=== PATIENT | male | born 1955 | race Caucasian/White ===

== ENCOUNTER 2023-09-12 10:00 | Emergency (ER) | payer OTHER, SELFPAY ==
[2023-09-12 10:09] VITALS: BP 145/74
[2023-09-12 10:49] VITALS: BP 130/71
[2023-09-12 11:25] LABS: % Basophils 0.3 % (0-2); % Eosinophils 0.2 % (0-6); % Immature Granulocytes 0.3 % (0-0.5); % Lymphocytes 6.4 % (20.5-51.1); % Monocytes 6.1 % (1.7-9.3); % Neutrophils 86.7 % (42.2-75.2); Absolute Lymphocytes 0.6 10^3/uL (1.2-3.4); Absolute Monocytes 0.6 10^3/uL (0.1-0.6); Absolute Neutrophils 8.2 10^3/uL (1.4-6.5); Hematocrit 43.1 % (39.0-52.0); Hemoglobin 15.4 g/dL (13.0-18.0); Mean Corp Hgb Conc. 35.7 g/dL (33.0-37.0); Mean Corpuscular Hgb 31.4 pg (27.0-31.0); Mean Platelet Volume 9.6 fL (7.4-10.4); Nucleated Red Blood Cells % 0 % (-); Platelet Count 170 10^3/uL (130-400); Red Cell Dist. Width 12.2 % (11.5-14.5); White Blood Cell Count 9.4 10^3/uL (4.8-10.8)
[2023-09-12 11:51] LABS: ALT (SGPT) 23 U/L (0-50); AST (SGOT) 31 U/L (17-59); Albumin 4.3 g/dl (3.5-5.0); Alkaline Phosphatase 59 U/L (38-126); Blood Urea Nitrogen 22 mg/dl (9-20); Calcium 9.4 mg/dl (8.4-10.2); Carbon Dioxide 26 mmol/L (22-30); Chloride 103 mmol/L (98-107); Glucose 148 mg/dl (70-99); Potassium 3.7 mmol/L (3.5-5.1); Sodium 139 mmol/L (135-145); eGFR > 60.00
[2023-09-12 11:53] LABS: Lipase 42 U/L (23-300)
[2023-09-12 13:11] VITALS: BP 114/74
--- NOTE | 2023-09-12 13:27 | ED.GENMED ---
History of Present Illness
General
Chief Complaint: Abdominal Pain
Source: patient
Exam Limitations: none
Time Seen by Provider: 09/12/23 10:38
Travel History
Have you had any contact with someone who has COVID-19?: No
Do you have any symptoms of coronavirus? Fever > 100 degrees, chills, cough, shortness of breath, sore throat, loss of taste or smell, muscle aches, or headache?: No
History of Present Illness
History of Present Illness:
68-year-old male presents with lower abdominal pain. Patient states that he noticed it yesterday but much worse today. Pain on my evaluation is slightly improved but still persist. No nausea or vomiting. No hematuria. No dysuria. No
hematochezia. No melena.
Past History
Past History
ED Past Medical History: Psychiatric (Bipolar, depression); Negative CAD, HTN or Hypercholesterolemia
ED Past Surgical History: None
Social History
Tobacco: Non-smoker
Alcohol: Occasional
Drug: None
Personal:
Living: alone
Employment: Not employed
Family History
Family History: Other
Phy Exam
Physical Exam
Physical Exam:
CONSTITUTIONAL Patient alert and oriented to person, place and time. Well-appearing. Vital signs reviewed.
HEAD atraumatic, normocephalic.
EYES eyelids normal to inspection, Pupils equally round and reactive to light, Extraocular muscles intact, Conjunctiva normal, Sclera normal.
NECK normal range of motion, Trachea midline, no jugular venous distention.
RESPIRATORY CHEST No respiratory distress noted, Chest expansion equal, Bilateral breath sounds clear.
CARDIOVASCULAR regular rate and rhythm, Heart sounds normal.
ABDOMEN mild generalized lower abdominal tenderness, Bowel sounds normal. No distention.
BACK normal inspection, no obvious deformities
UPPER EXTREMITY range of motion normal, Motor strength normal, no cyanosis, no edema.
LOWER EXTREMITY range of motion normal, Motor strength normal, no cyanosis, no edema.
NEURO Speech normal, No focal motor deficits, Connell coma scale 15, Memory normal, Cranial Nerves intact to screening exam.
SKIN skin warm, dry, and normal in color.
PSYCHIATRIC patient oriented to person place and time, Normal affect.
Course
Orders/Labs/Results
Orders:
Orders
09/12/23 11:04
CT Abd/Pel (IV only)-DH only Urgent
Comment:
Reason For Exam: lower abd pain
09/12/23 11:15
Complete Blood Count/With Diff Urgent
Comprehensive Metabolic Panel Urgent
Lipase Urgent
09/12/23 13:29
Urinalysis Reflex To Culture Urgent
Date Specimen was Collected: 09/12/23
Time Specimen was Collected: 13:28
Urine Microscopic Reflex Cult Urgent
Abnormal Lab Results
09/12/23 09/12/23
11:15 13:29
MCH 31.4 H pg
(27.0-31.0)
Absolute Neuts (auto) 8.2 H 10^3/uL
(1.4-6.5)
Absolute Lymphs (auto) 0.6 L 10^3/uL
(1.2-3.4)
Neutrophils % 86.7 H %
(42.2-75.2)
Lymphocytes % 6.4 L %
(20.5-51.1)
BUN 22 H mg/dl
(9-20)
Glucose 148 H mg/dl
(70-99)
Ur Occult Blood Reflex 4+ A
(Negative)
Urine Urobilinogen 2+ A
(Neg - 1+)
Leukocyte Esterase Rfl Trace A
(Negative)
Urine RBC 16-20 A /HPF
(0-2)
Urine Bacteria (Reflex) Few A
(Negative)
Urine Albumin (Reflex) 1+ A
(Neg - Trace)
09/12/23 11:15
09/12/23 11:15
Vital Signs
Initial and Last Documented VS:
Initial Vital Signs
Temp Pulse Resp BP Pulse Ox
97.6 F 60 16 145/74 98
09/12/23 10:09 09/12/23 10:09 09/12/23 10:09 09/12/23 10:09 09/12/23 10:09
Last Documented Vital Signs
Temp Pulse Resp BP Pulse Ox
97.6 F 66 16 114/74 97
09/12/23 10:09 09/12/23 13:11 09/12/23 13:11 09/12/23 13:11 09/12/23 13:11
MDM/Problems Addressed
MDM/Problems Addressed:
Abdominal pain, bladder tumor
*Radiology
Radiology exam reviewed: preliminary read by ED provider (No free air) and radiology read reviewed
*Pulse Oximetry
Patient hypoxic: no
*Critical Care Note
Total Time (30-74mins, 75-104mins- exclusive of procedures): Not Applicable
Data Reviewed
Source: patient
Patient Management
Escalation/DeEscalation of care consider admission/obs:
CT noted. Will refer to urology for outpatient follow-up. Await UA.
ED Attending Note
-
Portions of this chart may have been created with voice recognition software.� Occasional wrong word or��sound alike� substitutions may have occurred due to the inherent limitations of voice recognition software.
Discharge Plan
Departure
Patient Disposition: Home (Routine Discharge)
Date of Disposition: 09/12/23
Time of Disposition: 14:17
Patient with high blood pressure during this ER visit?: No
Discharge Problem:
Abdominal pain, Bladder mass
Instructions: Abdominal Pain
Prescriptions:
No Action
triamcinolone acetonide 1 APPLIC ointment
60 gm topical BID Qty: 1 0RF
triamcinolone acetonide 1 APPLIC ointment
60 gm TP BID Qty: 1 0RF
Referrals:
Jennifer Magana CRNP [Family Provider] -
Juan Daniel Alcantara MD [Active] -
Activity Restrictions/Additional Instructions:
Please see urology in the next 1 week for follow-up and reevaluation. Return immediately for worsening pain, fevers, vomiting or any other concerns.
Interventions
Interventions:
*Risk Screen - Suicide Last Done: 09/12/23 10:09
*General Assessment Last Done: 09/12/23 10:09
*Neglect/Abuse Screening Last Done: 09/12/23 10:09
*ED COVID-19 Vaccine History Last Done: 09/12/23 10:49
RO-Oofjuc-Pmnmiswmgx Assessment Last Done: 09/12/23 10:49
[2023-09-12 13:40] LABS: Urine Albumin 1+ (Neg - Trace); Urine Bilirubin Negative (Negative); Urine Character Clear (Clear); Urine Color Yellow; Urine Glucose Negative (Negative); Urine Ketone Negative (Negative); Urine Leukocyte Trace (Negative); Urine Nitrite Negative (Negative); Urine Occult Blood 4+ (Negative); Urine Specific Gravity 1.015 (<1.030); Urine Urobilinogen 2+ (Neg - 1+)
[2023-09-12 13:47] LABS: Urine Mucus Few; Urine Squamous Cell 0-2 /LPF (Few)
[2023-09-12 13:48] LABS: Urine Red Blood Cell 16-20 /HPF (0-2)
[2023-09-12 13:49] LABS: Urine Bacteria Few (Negative)
[2023-09-12 14:45] VITALS: BP 118/87
== END 2023-09-12 15:19 | disposition home or self-care (01) ==
LOC: EMR 10:00
PROVIDERS: EMERGENCY PHYSICIAN Emergency Medicine; FAMILY PHYSICIAN Nurse Practitioner Family
DX: R10.9 Unspecified abdominal pain (principal); D49.4 Neoplasm of unspecified behavior of bladder
CPT/HCPCS: 99284; 74177; 80053; 81003; 81015; 83690; 85025; Q9967